=== PATIENT | female | born 1980 | race Caucasian/White ===

== ENCOUNTER 2022-10-02 00:40 | Emergency (ER) | payer OTHER ==
[~2022-10-02] VITALS: Ht 149.9 cm; Wt 56.8 kg
[~2022-10-02 00:40] MED LIST: INSLAN SQ; METF1000 PO
[2022-10-02] MEDS ORDERED: KETOROLAC TROMETHAMINE 60 MG/2 ML VIAL IM ONE (01:30)
[2022-10-02 01:36] VITALS: BP 129/88
== END 2022-10-02 01:36 | disposition home or self-care (01) ==
LOC: EMS 00:40
DX: S29.012A Strain of muscle and tendon of back wall of thorax, initial encounter (principal); E11.9 Type 2 diabetes mellitus without complications; I10 Essential (primary) hypertension; Z90.710 Acquired absence of both cervix and uterus; Z90.49 Acquired absence of other specified parts of digestive tract; X58.XXXA Exposure to other specified factors, initial encounter; Y93.89 Activity, other specified; Y92.89 Other specified places as the place of occurrence of the external cause; Y99.8 Other external cause status
CPT/HCPCS: 99283; 96372; J1885